=== PATIENT | male | born 1975 | race Caucasian/White ===

== ENCOUNTER → 2016-08-28 | Emergency (ER) | payer OTHER ==
[~2016-08-28] MED LIST: IBUPROFEN 600 MG TABLET (FP) PO ONE
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
[2016-08-28 18:08] VITALS: BMI 29.8
[2016-08-28 19:19] VITALS: BP 142/69; PULSE 96; TEMP 97.6
== END | disposition home or self-care (01) ==
LOC: JER 16:54
DX: S20.319A Abrasion of unspecified front wall of thorax, initial encounter (principal); S50.812A Abrasion of left forearm, initial encounter; V43.52XA Car driver injured in collision with other type car in traffic accident, initial encounter; W22.11XA Striking against or struck by driver side automobile airbag, initial encounter; Y92.414 Local residential or business street as the place of occurrence of the external cause; Y93.89 Activity, other specified; Y99.9 Unspecified external cause status
CPT/HCPCS: 71020-TC; 99281-25